=== PATIENT | male | born 1985 | race Caucasian/White ===

== ENCOUNTER → 2017-08-02 | Outpatient (CLI) | payer OTHER ==
[~2017-08-02] MED LIST: CEPH500C2 PO; CYM30 PO; KPP/1000 PO; LAMO100T PO; ZONI100C2 PO; [UNRECOGNIZED DRUG - CODE] PO
--- NOTE | 2017-08-02 15:21 | DIAGNOSTIC IMAGING REPORT ---
[facility] CLINICAL HISTORY: Anejaculation. FINDINGS: 2 AP supine abdominal radiographs are correlated with abdominal CT dated 06/22/2008. There is a nonobstructed abdominal bowel gas pattern noting moderate colonic fecal retention. There is no radiographic evidence of nephrolithiasis. Pelvic phleboliths are observed. The bony structures appear intact. IMPRESSION: Nonobstructed abdominal bowel gas pattern noting moderate colonic fecal retention. Electronically signed by: Germain Quezada M.D. 08/02/2017 3:20 PM Dictated Date/Time: 08/02/2017 3:19 PM
== END | disposition home or self-care (01) ==
LOC: C.RADBC 14:49
PROVIDERS: ATTEND Urology
DX: N53.19 Other ejaculatory dysfunction (principal); K59.00 Constipation, unspecified